=== PATIENT | female | born 1960 | race Hispanic/Latino ===

== ENCOUNTER 2022-02-17 06:53 | Inpatient (IN) | payer BC ==
[2022-02-15 11:19] LABS: BASOPHILS % 0.2 % (0.0-1.0); EOSINOPHILS # (AUTO) 0.1 (0.0-0.4); EOSINOPHILS % 0.9 % (0.0-6.0); HEMATOCRIT 44.3 % (34.2-44.1); HEMOGLOBIN 13.7 g/dL (12.0-16.0); LYMPHOCYTES % 30.1 % (18.0-39.1); MEAN CORPUSCULAR HEMOGLOBIN 29.5 pg (28-32); MEAN CORPUSCULAR HGB CONC 30.9 g/dL (31-35); MEAN CORPUSCULAR VOLUME 95.5 fL (81-99); MONOCYTES # (AUTO) 0.7 (0.2-0.8); MONOCYTES % 7.1 % (4.4-11.3); NEUTROPHILS # (AUTO) 6.1 (2.1-6.9); NEUTROPHILS % 61.5 % (38.7-80.0); PLATELET COUNT 305 x10e3/uL (140-360); RED BLOOD COUNT 4.64 x10e6/uL (3.6-5.1); RED CELL DISTRIBUTION WIDTH 13.2 % (11.7-14.4)
[2022-02-15 11:42] LABS: ANION GAP 15.4 mmol/L (8-16); CALCIUM 9.1 mg/dL (8.4-10.2); CREATININE, SERUM 0.68 mg/dL (0.57-1.11); POTASSIUM 3.4 mmol/L (3.5-5.1)
[~2022-02-17] VITALS: Ht 152.4 cm; Wt 118.1 kg
[2022-02-17] VITALS (9 sets, daily range): BP systolic 86–110; BP diastolic 38–79
[~2022-02-17 06:53] MED LIST: DIOVAN160 MG PO; HYDROCHLOROTHIA25 MG PO; ZIAC 5-6.25 MG1 EACH PO
[2022-02-17] MEDS ORDERED: BUPIVACAINE 0.5%/EPI 30 ML SDV INJ ONE (11:18)
[2022-02-17] MEDS ORDERED: ONDANSETRON HCL INJ 2MG/ML 2ML 2 MG/ML VIAL IV PRN (12:15)
[2022-02-17] MEDS ORDERED: HYDROMORPHONE 1MG/1ML INJ IV PRN (12:15)
[2022-02-17] MEDS ORDERED: FENTANYL CITRATE/PF 100MCG/2 ML INJ ONE ×2 (12:26→12:43)
[2022-02-17] MEDS ORDERED: MIDAZOLAM HCL 2 MG/2 ML VIAL ONE (12:43)
[2022-02-17] MEDS ORDERED: Morphine 4mg INJECTION 4 MG/ML INJ ONE (12:50)
[2022-02-17] MEDS: KETOROLAC TROMETHAMINE 30 MG/ML VIAL IV PRN ×2 (12:55→19:11)
[2022-02-17] MEDS ORDERED: ACETAMINOPHEN 1000 MG/100 ML 100 ML IV ONE (12:58)
[2022-02-17] MEDS ORDERED: LIDOCAINE HCL 2% LOCAL INJ 5 ML SDV VIAL INJ ONE (13:37)
[2022-02-17] MEDS ORDERED: POVIDONE IODINE 0.05% 0.05 % ML PO ONE (13:37)
[2022-02-17] MEDS ORDERED: SEVOFLURANE INHAL SOLN 250 ML PEN BTL ONE (13:37)
[2022-02-17] MEDS ORDERED: GLYCOPYRROLATE INJ 0.2 MG/ML VIAL ONE (13:37)
[2022-02-17] MEDS ORDERED: ROCURONIUM BROMIDE 10 MG/ML 5ML VIAL IV ONE (13:37)
[2022-02-17] MEDS ORDERED: NEOSTIGMINE 1 MG/ML 10ML VIAL ONE (13:37)
[2022-02-17] MEDS ORDERED: ONDANSETRON HCL INJ 2MG/ML 2ML 2 MG/ML VIAL ONE (13:37)
[2022-02-17] MEDS ORDERED: LIDOCAINE HCL 2% JELLY 5 ML TUBE ONE (13:37)
[2022-02-17] MEDS ORDERED: SUCCINYLCHOLINE CHLORIDE 20 MG/ML 10ML VIAL ONE (13:37)
[2022-02-17] MEDS ORDERED: PROPOFOL IV EMULSION 10 MG/ML 20 ML VIAL ONE (13:37)
[2022-02-17] MEDS ORDERED: ETOMIDATE 2 MG/ML 10 ML INJ IV ONE (13:37)
[2022-02-17] MEDS: SODIUM CHLORIDE 0.9% 1000ML 1,000 ML IV SCH (13:54)
[2022-02-17] MEDS ORDERED: LACTATED RINGER'S 500 ML IV ONE (14:30)
[2022-02-17] MEDS: VALSARTAN 160 MG TAB PO SCH (16:12)
[2022-02-18] VITALS (8 sets, daily range): BP systolic 88–124; BP diastolic 47–82
[2022-02-18] MEDS: SODIUM CHLORIDE 0.9% 1000ML 1,000 ML IV SCH ×2 (03:54→08:15)
[2022-02-18 05:04] LABS: BASOPHILS # (AUTO) 0.1 (0.0-0.1); BASOPHILS % 0.4 % (0.0-1.0); EOSINOPHILS # (AUTO) 0.2 (0.0-0.4); EOSINOPHILS % 1.4 % (0.0-6.0); HEMATOCRIT 33.8 % (34.2-44.1); LYMPHOCYTES # (AUTO) 2.1 (1.0-3.2); LYMPHOCYTES % 12.4 % (18.0-39.1); MEAN CORPUSCULAR HGB CONC 32.5 g/dL (31-35); MEAN CORPUSCULAR VOLUME 92.1 fL (81-99); MONOCYTES # (AUTO) 0.8 (0.2-0.8); NEUTROPHILS # (AUTO) 13.6 (2.1-6.9); NEUTROPHILS % 80.3 % (38.7-80.0); PLATELET COUNT 294 x10e3/uL (140-360); RED BLOOD COUNT 3.67 x10e6/uL (3.6-5.1); RED CELL DISTRIBUTION WIDTH 13.6 % (11.7-14.4)
[2022-02-18 05:22] LABS: ANION GAP 15.3 mmol/L (8-16); CALCIUM 8.2 mg/dL (8.4-10.2); CREATININE, SERUM 0.9 mg/dL (0.57-1.11); POTASSIUM 3.3 mmol/L (3.5-5.1)
[2022-02-18] MEDS: KETOROLAC TROMETHAMINE 30 MG/ML VIAL IV PRN ×2 (07:18→18:22)
[2022-02-18] MEDS: HYDROCHLOROTHIAZIDE 25 MG TAB PO SCH ×2 (08:27→08:35)
[2022-02-18] MEDS: VALSARTAN 160 MG TAB PO SCH ×3 (08:27→17:00)
[2022-02-18] MEDS: BISOPROLOL/HCTZ 5/6.25MG TAB PO SCH (08:34)
[2022-02-19] VITALS (7 sets, daily range): BP systolic 97–134; BP diastolic 60–81
[2022-02-19] MEDS: SODIUM CHLORIDE 0.9% 1000ML 1,000 ML IV SCH ×2 (03:38→22:46)
[2022-02-19] MEDS: HYDROCODONE/APAP 7.5MG-325MG 1 EA TAB PO PRN ×2 (06:23→22:14)
[2022-02-19] MEDS: HYDROCHLOROTHIAZIDE 25 MG TAB PO SCH (09:00)
[2022-02-19] MEDS: VALSARTAN 160 MG TAB PO SCH ×2 (09:00→17:00)
[2022-02-19] MEDS: BISOPROLOL/HCTZ 5/6.25MG TAB PO SCH (09:00)
[2022-02-19] MEDS: KETOROLAC TROMETHAMINE 30 MG/ML VIAL IV PRN (12:28)
[2022-02-19] MEDS ORDERED: MAGNESIUM/ALUMINUM/SIMETHICONE 30 ML UDC PO PRN (16:15)
[2022-02-20 00:46] VITALS: BP 123/60
[2022-02-20 04:44] VITALS: BP 117/67
[2022-02-20 08:00] VITALS: BP 117/67
[2022-02-20 08:30] VITALS: BP 134/55
[2022-02-20] MEDS: BISOPROLOL/HCTZ 5/6.25MG TAB PO SCH (08:53)
[2022-02-20] MEDS: HYDROCHLOROTHIAZIDE 25 MG TAB PO SCH (08:57)
[2022-02-20] MEDS: VALSARTAN 160 MG TAB PO SCH (08:58)
[2022-02-20 13:02] VITALS: BP 135/82
[2022-03-04] MEDS ORDERED: CLEOCIN HCL300 MG PO (19:02)
[2022-03-15] MEDS ORDERED: VITAMIN D3 COM1 EACH PO (16:12)
[2022-03-15] MEDS ORDERED: VITAMIN C1000 MG PO (16:12)
[2022-03-15] MEDS ORDERED: AMOX-CLAV PO (16:12)
[2022-03-15] MEDS ORDERED: CINNAMON PO (16:15)
[2022-03-15] MEDS ORDERED: BERBERINE PO (16:15)
== END 2022-02-20 16:40 | disposition home or self-care (01) | DRG 336 ==
LOC: OR 06:53 → PACU V 12:42 → MED/SURG 13:29 → OBSVTOIN 02-20 09:00
PROVIDERS: ADMIT Surgery; ATTEND Surgery
PROC: 0WUF0JZ Supplement Abdominal Wall with Synthetic Substitute, Open Approach (ICD-10-PCS; principal; 2022-02-20)
PROC: 0DNU0ZZ Release Omentum, Open Approach (ICD-10-PCS; 2022-02-20)
DX: K43.6 Other and unspecified ventral hernia with obstruction, without gangrene (principal); Z68.43 Body mass index [BMI] 50.0-59.9, adult; K66.0 Peritoneal adhesions (postprocedural) (postinfection); Z20.822 Contact with and (suspected) exposure to COVID-19; E66.01 Morbid (severe) obesity due to excess calories
CPT/HCPCS: 36415; 71046; 80048; 85025; 88302; 93005; C1781; G0378; J0330; J0690; J1885; J2001; J2250; J2270; J2405; J2710; J3010; J7030; J7121